=== PATIENT | female | born 1950 | race Caucasian/White ===

== ENCOUNTER 2018-09-19 10:00 | Day surgery (SDC) | payer OTHER, MEDICARE ==
[2018-09-19 10:58] VITALS: BMI 39.1
[2018-09-19 11:33] VITALS: TEMP 97.5
[2018-09-19 12:35] VITALS: BP 101/72; PULSE 55
--- NOTE | 2018-09-19 13:03 | EKG ---
Test Reason : Blood Pressure : / mmHG Vent. Rate : 050 BPM Atrial Rate : 050 BPM P-R Int : 174 ms QRS Dur : 084 ms QT Int : 488 ms P-R-T Axes : 029 019 042 degrees QTc Int : 444 ms SINUS BRADYCARDIA WITH SINUS ARRHYTHMIA OTHERWISE NORMAL ECG WHEN COMPARED WITH ECG OF 12-APR-2015 21:16, SINUS RHYTHM HAS REPLACED WIDE QRS TACHYCARDIA VENT. RATE HAS DECREASED BY 87 BPM Confirmed by Sean Santos ([id number]) on 09/19/2018 1:03:21 PM Referred By: LATESHA HERRERA Confirmed By:Sean Santos
== END 2018-09-19 12:35 | disposition home or self-care (01) ==
LOC: JASU-ENDO 10:00
PROVIDERS: ATTEND Internal Medicine
PROC: 5A2204Z Restoration of Cardiac Rhythm, Single (ICD-10-PCS; principal; 2018-09-19 11:00)
DX: I48.91 Unspecified atrial fibrillation (principal); I10 Essential (primary) hypertension; G47.30 Sleep apnea, unspecified
CPT/HCPCS: 92960; 93005; 93010

== ENCOUNTER 2023-06-24 04:48 | Day surgery (SDC) | payer OTHER, MEDICARE ==
[2023-06-22 12:30] VITALS: BMI 38.2
[2023-06-24 08:50] VITALS: TEMP 97.4
[2023-06-24 09:07] VITALS: RESP 16
[2023-06-24 09:23] VITALS: BP 117/82; PULSE 87
== END 2023-06-24 09:32 | disposition home or self-care (01) ==
LOC: JASU-ENDO 04:48
PROVIDERS: ATTEND Internal Medicine Gastroenterology
PROC: 0DBB8ZX Excision of Ileum, Via Natural or Artificial Opening Endoscopic, Diagnostic (ICD-10-PCS; 2023-06-24)
PROC: 0DB98ZX Excision of Duodenum, Via Natural or Artificial Opening Endoscopic, Diagnostic (ICD-10-PCS; 2023-06-24)
PROC: 0DB68ZX Excision of Stomach, Via Natural or Artificial Opening Endoscopic, Diagnostic (ICD-10-PCS; 2023-06-24)
PROC: 0DB28ZX Excision of Middle Esophagus, Via Natural or Artificial Opening Endoscopic, Diagnostic (ICD-10-PCS; 2023-06-24)
PROC: 0DB38ZX Excision of Lower Esophagus, Via Natural or Artificial Opening Endoscopic, Diagnostic (ICD-10-PCS; 2023-06-24)
PROC: 0DBH8ZX Excision of Cecum, Via Natural or Artificial Opening Endoscopic, Diagnostic (ICD-10-PCS; principal; 2023-06-24 08:00)
DX: Z12.11 Encounter for screening for malignant neoplasm of colon (principal); K64.8 Other hemorrhoids; K57.30 Diverticulosis of large intestine without perforation or abscess without bleeding; K29.50 Unspecified chronic gastritis without bleeding; K21.00 Gastro-esophageal reflux disease with esophagitis, without bleeding; K44.9 Diaphragmatic hernia without obstruction or gangrene; K59.00 Constipation, unspecified; I10 Essential (primary) hypertension
CPT/HCPCS: 88305-TC; 88342-TC